=== PATIENT | female | born 1945 | race Caucasian/White ===

== ENCOUNTER 2016-06-30 09:27 | Outpatient (CLI) | payer MEDICARE, BC ==
--- NOTE | 2016-06-30 13:10 | RAD ---
TWO VIEWS OF THE LEFT HUMERUS: DATE: 06/30/16. HISTORY: Distal humerus/proximal forearm pain through the elbow joint secondary to fall on Sunday. FINDINGS: There is a fracture involving the radial head noted on image 1 of 2. This fracture extends through the mid portion of the radial head without significant displacement. It is slightly dorsally locate d on the lateral view. There is evidence of prior rotator cuff surgery on the right. No fracture i s seen involving the humerus. IMPRESSION: Radial head fracture. POS: [facility]
--- NOTE | 2016-06-30 14:11 | RAD ---
TWO VIEWS OF RIGHT FOREARM: DATE: 06/30/16. COMPARISON: None. HISTORY: Distal humeral pain and proximal forearm pain through elbow joint following a recent fall. FINDINGS: There is an elbow joint effusion. There is a subtle nondisplaced radial head fracture, better seen on radiographs of the right humerus. There is no evidence for dislocation. There is enthesophyte f ormation at the level of the medial epicondyle. Imaged portions of the wrist demonstrate prominent degenerative change involving the 1st and 2nd carpometacarpal joints. IMPRESSION: Nondisplaced radial head fracture with an associated elbow joint effusion. No evidence for dislocat ion noted. POS: [facility]
== END 2016-06-30 09:28 | disposition home or self-care (01) ==
LOC: BURRAD 09:27
PROVIDERS: ATTEND Physician Assistant
DX: M79.601 Pain in right arm (principal); S52.124A Nondisplaced fracture of head of right radius, initial encounter for closed fracture; W19.XXXA Unspecified fall, initial encounter; Y92.099 Unspecified place in other non-institutional residence as the place of occurrence of the external cause

== ENCOUNTER 2018-06-30 22:47 | Emergency (ER) | payer BC, MEDICARE ==
[2018-06-30 23:28] LABS: Bilirubin Negative (Negative); Blood, Urine Moderate (Negative); Clarity Clear (Clear); Glucose, Urine (Dipstick) Negative (Negative); Leukocyte Negative (Negative); Nitrite Negative (Negative); Protein, Urine (Dipstick) Negative (Neg-Trace); Specific Gravity, Urine 1.015 (1.005-1.030); Urobilinogen 0.2 mg/dL (0.2-1.0)
[2018-06-30 23:32] LABS: Bacteria/HPF Rare-Few HPF (None Seen); Squamous Epithelial 0-3 HPF (0-3); WBC/HPF 0-3 HPF (0-3)
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
== END 2018-06-30 23:47 | disposition home or self-care (01) ==
LOC: BURERS 22:47
DX: S00.93XA Contusion of unspecified part of head, initial encounter (principal); S30.1XXA Contusion of abdominal wall, initial encounter; E03.9 Hypothyroidism, unspecified; F32.9 Major depressive disorder, single episode, unspecified; F41.9 Anxiety disorder, unspecified; Y04.0XXA Assault by unarmed brawl or fight, initial encounter
CPT/HCPCS: 74176; 81003; 81015

== ENCOUNTER 2018-09-06 17:35 | Emergency (ER) | payer BC ==
[2018-09-06] MEDS ORDERED: Ibuprofen 800 MG TAB ONE ×2 (17:51)
[2018-09-06] MEDS ORDERED: Acetaminophen 500 MG TAB ONE (17:51)
--- NOTE | 2018-09-06 20:09 | RAD ---
LEFT HUMERUS TWO VIEWS: 09/06/18 No fracture was seen. The humerus appears intact. Some bony spurring is seen in the elbow joint at th e coronoid process. IMPRESSION: No acute finding. POS: [facility]
== END 2018-09-06 18:21 | disposition home or self-care (01) ==
LOC: BURERS 17:35
DX: S40.022A Contusion of left upper arm, initial encounter (principal); E03.9 Hypothyroidism, unspecified; F41.9 Anxiety disorder, unspecified; F32.9 Major depressive disorder, single episode, unspecified; W50.0XXA Accidental hit or strike by another person, initial encounter

== ENCOUNTER 2021-03-31 11:32 | Emergency (ER) | payer BC ==
[2021-03-31] MEDS ORDERED: Acetaminophen 500 MG TAB ONE (11:59)
== END 2021-03-31 13:20 | disposition home or self-care (01) ==
LOC: BURERS 11:32
DX: S09.90XA Unspecified injury of head, initial encounter (principal); S00.83XA Contusion of other part of head, initial encounter; M25.552 Pain in left hip; E03.9 Hypothyroidism, unspecified; I10 Essential (primary) hypertension; W50.0XXA Accidental hit or strike by another person, initial encounter
CPT/HCPCS: 70450

== ENCOUNTER 2021-05-29 14:38 | Emergency (ER) | payer BC | END 2021-05-29 15:38 | disposition home or self-care (01) | LOC: BURERS 14:38 | DX: B48.8 Other specified mycoses (principal); L30.3 Infective dermatitis; L85.3 Xerosis cutis; Z79.899 Other long term (current) drug therapy | CPT/HCPCS: 99282 ==